=== PATIENT | male | born 1950 | race Caucasian/White ===

== ENCOUNTER → 2017-07-31 | Outpatient (CLI) | payer MEDICARE ==
[2017-07-31 17:43] LABS: CHOLESTEROL LEVEL 128 MG/DL (<200); CHOLESTEROL RISK RATIO 4.413 (<5); HDL CHOLESTEROL 29 MG/DL (>40); NON-HDL-C 99 MG/DL; NT-PRO BNP 637 PG/ML (<125); PSA SCREENING 0.37 NG/ML (< 4.0); TRIGLYCERIDES LEVEL 75 MG/DL (<150)
== END ==
LOC: M WUC 11:18
DX: I50.9 Heart failure, unspecified (principal); Z13.220 Encounter for screening for lipoid disorders; Z12.5 Encounter for screening for malignant neoplasm of prostate
CPT/HCPCS: 80061